=== PATIENT | male | born 1940 | race Caucasian/White ===

== ENCOUNTER 2021-03-17 06:56 | Day surgery (SDC) | payer MEDICARE ==
[2021-03-17] MEDS ORDERED: Propofol 200 MG/20 ML SDV ONE (07:29)
[2021-03-17] MEDS ORDERED: fentaNYL 100 MCG/2 ML SDV ONE (07:29)
[2021-03-17] MEDS ORDERED: Dextrose 5%-Lactated Ringers 1,000 ML IV SCH (07:45)
[2021-03-17 10:06] VITALS: BP 122/75; PULSE 56
--- NOTE | 2021-03-28 16:37 | OR ---
DATE OF PROCEDURE: 03/17/2021 SURGEON: Gibson Gandhi MD PREOPERATIVE DIAGNOSIS: Positive Cologuard test. POSTOPERATIVE DIAGNOSES: 1. Positive Cologuard test. 2. Single small polyp in the rectum. 3. Extensive conley-diverticulosis. OPERATIVE PROCEDURE: Flexible colonoscopy with polypectomy by snare technique. ANESTHESIA: IV sedation. INDICATION FOR PROCEDURE: An 80-year-old male presenting with positive Cologuard examination. He is therefore referred for a flexible colonoscopy. Potential risks of the procedure including bleeding and perforation were discussed and the patient wishes to proceed. DETAILS OF PROCEDURE: The patient was taken to the operating room and placed in a left lateral decubitus position. IV sedation was administered, after which the initial digital rectal exam was performed which was unremarkable. Colonoscope was passed into the rectum with retroflexion revealing uncomplicated hemorrhoidal columns. Scope was eventually passed to the level of the cecum. The prep was fairly good with only small amount of liquid stool being present. The patient had extensive but otherwise uncomplicated conley-diverticulosis. Otherwise, there were no areas of colitis. A single small polyp in the mid rectum was then identified. This was noted around 2 mm. This was encircled at that space and removed by means of cautery snare technique. Good hemostasis at the polypectomy site was seen and the procedure then concluded. The patient tolerated the procedure well. One might consider a repeat colonoscopy in perhaps 3 years depending on the patient's clinical status at that time. Gibson Gandhi MD /[id number]
== END 2021-03-17 10:18 | disposition home or self-care (01) ==
LOC: JP.SDS 06:56
PROVIDERS: ATTEND Surgery
DX: K62.1 Rectal polyp (principal); K57.30 Diverticulosis of large intestine without perforation or abscess without bleeding; K64.9 Unspecified hemorrhoids; I10 Essential (primary) hypertension; Z91.030 Bee allergy status
CPT/HCPCS: 45385; 88305; J2704; J3010; J7121

== ENCOUNTER 2024-03-14 09:22 | Emergency (ER) | payer MEDICARE ==
[2024-03-14] MEDS ORDERED: Acetaminophen/HYDROcodone 325-7.5 MG Tab PO PRN (10:55)
[2024-03-14 11:12] LABS: BASOPHILS PERCENT AUTO 0.3 % (0.1-1.3); EOSINOPHILS ABSOLUTE AUTO 0.06 K/uL (0.00-0.40); EOSINOPHILS PERCENT AUTO 0.9 % (0.0-5.4); HEMATOCRIT 42.7 % (38.4-49.7); HEMOGLOBIN 14.4 g/dL (12.9-16.9); IMMATURE GRAN PERCENT AUTO 0.3 % (0.0-0.7); LYMPHOCYTES ABSOLUTE AUTO 1.17 K/uL (0.8-3.3); LYMPHOCYTES PERCENT AUTO 16.6 % (11.4-47.7); MEAN CORPUSCULAR HEMOGLOBIN 27.7 pg (31.6-35.5); MEAN CORPUSCULAR HGB CONC 33.7 g/dL (31.6-35.5); MEAN CORPUSCULAR VOLUME 82.1 fL (81.4-99.0); MONOCYTES ABSOLUTE AUTO 0.69 K/uL (0.20-0.90); MONOCYTES PERCENT AUTO 9.8 % (3.3-12.6); NEUTROPHILS ABSOLUTE AUTO 5.08 K/uL (1.0-7.6); NEUTROPHILS PERCENT AUTO 72.1 % (40.0-78.1); PLATELET COUNT,PLT 184 K/uL (130-375)
[2024-03-14] MEDS: Cyclobenzaprine 10 MG Tab PO ONE (11:19)
[2024-03-14] MEDS: Acetaminophen/HYDROcodone 325-5 MG Tab PO ONE (11:20)
[2024-03-14 11:33] LABS: ALANINE AMINOTRANSFERASE,ALT 40 U/L (12-78); ALBUMIN 3.7 g/dL (3.4-5.0); ALKALINE PHOSPHATASE 83 U/L (46-116); ASPARTATE AMNIOTRANSFERASE,AST 27 U/L (15-37); BILIRUBIN TOTAL 0.4 mg/dL (0.2-1.0); BLOOD UREA NITROGEN,BUN 25 mg/dL (7-18); CALCIUM 9.7 mg/dL (8.5-10.1); CARBON DIOXIDE,CO2 29 mmol/L (21-32); CHLORIDE,CL 101 mmol/L (100-108); EST CRCL DRUG DOSING (CG) 54.05 mL/min; ESTIMATED GFR 74 mL/min (>60); GLUCOSE RANDOM 99 mg/dL (74-106); PROTEIN TOTAL,TP 7.4 g/dL (6.4-8.2); SODIUM,NA 138 mmol/L (140-148)
[2024-03-14 11:34] LABS: BASOPHILS ABSOLUTE AUTO 0.02 K/uL (0.00-0.10); IMMATURE GRAN ABSOLUTE AUTO 0.02 K/uL (0.00-0.23)
[2024-03-14 11:37] LABS: SEDIMENTATION RATE MANUAL 5 mm/hr (0-20)
[2024-03-14 11:49] LABS: APPEARANCE,URINE SLIGHTLY CLOUDY (CLEAR); BILIRUBIN,URINE NEGATIVE (NEGATIVE); COLOR,URINE YELLOW (YELLOW); GLUCOSE,URINE NEGATIVE (NEGATIVE); KETONES,URINE NEGATIVE (NEGATIVE); LEUKOCYTE ESTERASE,URINE NEGATIVE (NEGATIVE); NITRITE,URINE NEGATIVE (NEGATIVE); OCCULT BLOOD,URINE NEGATIVE (NEGATIVE); PROTEIN,URINE NEGATIVE (NEGATIVE); UROBILINOGEN,URINE 0.2 EU/dL (0.2-1.0)
[2024-03-14 11:52] LABS: AMORPHOUS SEDIMENT,URINE RARE; BACTERIA,URINE RARE; EPITHELIAL CELLS,URINE NOT SEEN; MUCUS,URINE RARE; RBC,URINE NOT SEEN (0-5); WBC,URINE NOT SEEN (0-5)
[2024-03-14 12:57] VITALS: BP 187/98; PULSE 63
== END 2024-03-14 13:53 | disposition home or self-care (01) ==
LOC: JP.ED 09:22
DX: M48.061 Spinal stenosis, lumbar region without neurogenic claudication (principal); M51.36 Other intervertebral disc degeneration, lumbar region; I10 Essential (primary) hypertension; Z79.82 Long term (current) use of aspirin; Z79.899 Other long term (current) drug therapy; Z91.030 Bee allergy status
CPT/HCPCS: 36415; 72131; 76377; 80053; 81001; 85025; 85651; 99284; A9270-GY

== ENCOUNTER 2025-03-28 10:20 | Emergency (ER) | payer MEDICARE ==
[2025-03-28 10:45] VITALS: BP 165/74; PULSE 66
[2025-03-28] MEDS: Doxycycline 100 MG Cap PO ONE (11:13)
== END 2025-03-28 11:17 | disposition home or self-care (01) ==
LOC: JP.ED 10:20
DX: S80.861A Insect bite (nonvenomous), right lower leg, initial encounter (principal); I10 Essential (primary) hypertension; Z91.030 Bee allergy status; Z79.82 Long term (current) use of aspirin; Z79.899 Other long term (current) drug therapy; W57.XXXA Bitten or stung by nonvenomous insect and other nonvenomous arthropods, initial encounter
CPT/HCPCS: 99282; A9270; 99283